=== PATIENT | male | born 1980 ===

== ENCOUNTER 2018-11-18 19:44 | Emergency (ER) | payer SELFPAY ==
[~2018-11-18 19:44] MED LIST: ISOVUE-370 76%-LOCM 1 ML ONE
[2018-11-18 20:08] LABS: #Eosinphils 0.2 thou/uL (0.0-0.7); #Lymphocytes 1.7 thou/uL (1.20-3.40); #Monocytes 0.5 thou/uL (0.11-0.59); #Neutrophils 2.9 thou/uL (1.40-6.50); %Basophils 0.5 % (0.0-1.0); %Eosinophils 3.1 % (0.0-10.0); %Lymphocytes 32.2 % (21.0-51.0); %Neutrophils 54.2 % (42.0-75.0); Hemoglobin 15.4 g/dL (14.0-18.0); Mean Corpuscular HGB CONC 34.6 g/dL (32.0-36.0); Mean Corpuscular Hemoglobin 31.4 pg (27.0-31.0); Mean Corpuscular Volume 90.9 fL (78.0-98.0); Mean Platelet Volume 7.2 fL (7.4-10.4); Platelet Count 222 thou/uL (130-400); RBC Distribution Width 11.2 % (11.5-14.5); Red Blood Cell (RBC) Count 4.89 mill/uL (4.70-6.10); White Blood Cell (WBC) Count 5.4 thou/uL (4.8-10.8)
--- NOTE | 2018-11-18 20:14 | RAD ---
XR Chest Pa Lat STANDARD HISTORY: Chest and back pain. History of pneumothorax. COMPARISON: None. FINDINGS: Heart size is within normal limits. Emphysematous type lung changes are seen with changes m ost pronounced within the right upper lobe. A surgical clip is seen in the right lung apex. Blunting to the right costophrenic angle is felt to be chronic in nature. No pneumothorax is identifi ed. IMPRESSION: Chronic lung change.
[2018-11-18 20:27] LABS: ALT (SGPT) 18 U/L (8-55); AST (SGOT) 14 U/L (5-34); Albumin 4.4 g/dL (3.5-5.0); Alkaline Phosphatase 96 U/L (40-150); Anion Gap 12 mmol/L (10-20); BUN (Urea Nitrogen) 9 mg/dL (8.9-20.6); Bilirubin, Total 0.3 mg/dL (0.2-1.2); Calc. Creatinine Clearance 0 mL/min (70-130); Calcium 9.6 mg/dL (7.8-10.44); Carbon Dioxide 26 mmol/L (22-29); Chloride 104 mmol/L (98-107); Estimated GFR-MDRD 71; Glucose 88 mg/dL (70-105); Potassium 3.8 mmol/L (3.5-5.1); Protein, Total 7.4 g/dL (6.0-8.3); Sodium 138 mmol/L (136-145)
--- NOTE | 2018-11-18 21:48 | CT ---
CT Chest W Con HISTORY: Chest pain. History of 3 spontaneous pneumothoraces. COMPARISON: None. FINDINGS: The lungs show emphysematous change with blebs seen in both upper lobes more prominent on t he right. A surgical clip is seen in the right lung apex. There is no signs of pneumothorax. There are noncalcified nodular pleural changes seen posteriorly which appear to be chronic change. There is nodularity along the major fissure on the left. This could represent intrafissural lymph nodes. There is a partially calcified nodular density seen along the left major fissure. There is no signifi cant mediastinal or hilar adenopathy. Visualized liver parenchyma is unremarkable. Right and left adrenal glands and visualized portions of the kidneys appear normal IMPRESSION: Chronic appearing lung changes. No acute process identified.
== END 2018-11-18 22:20 | disposition home or self-care (01) ==
LOC: ERS 19:44
DX: R07.89 Other chest pain (principal); F32.9 Major depressive disorder, single episode, unspecified; Z79.899 Other long term (current) drug therapy
CPT/HCPCS: 36415; 71046; 71260; 80053; 84484; 85025; 93005; Q9966